=== PATIENT | female | born 1970 | race Caucasian/White ===

== ENCOUNTER 2021-06-28 16:36 | Emergency (ER) | payer OTHER ==
[2021-06-28 18:36] LABS: BASOPHIL 0.6 % (0-2); EOSINOPHIL 3.7 % (0-5); HCT 37.9 % (37.0-47.0); HGB 12.6 g/dl (12.5-16.0); LYMPHOCYTE 41.7 % (15-48); MCH 31.8 pg (25.0-31.0); MCHC 33.2 g/dL (32.0-36.0); MCV 95.7 fL (78.0-100.0); MONOCYTE 6.6 % (0-12); MPV 10.3 fL (6.0-9.5); NEUTROPHIL 47.1 % (41-80); NRBC 0; PLT 243 K/uL (150-400); RBC 3.96 M/uL (4.20-5.40); WBC 7.1 K/uL (4.0-10.5)
[2021-06-28 18:45] LABS: BILIRUBIN - TOTAL 0.3 mg/dL (0.2-1.0); BUN/CREAT RATIO (CALC) 16.7 RATIO; CREATININE 0.78 mg/dL (0.51-0.95); GLOBULIN (CALCULATION) 2.9 g/dL; TOTAL PROTEIN 6.9 g/dL (6.4-8.2)
[2021-06-28 18:55] LABS: LACTIC ACID 0.6 mmol/L (0.4-1.9)
[2021-06-28 20:04] LABS: BILIRUBIN NEGATIVE (NEGATIVE); BLOOD NEGATIVE Ery/uL (NEGATIVE); CLARITY CLEAR (CLEAR); COLOR YELLOW (YELLOW); GLUCOSE (U) NORMAL (NORMAL); LEUKOCYTES NEGATIVE Leu/uL (NEGATIVE); NITRITE NEGATIVE (NEGATIVE); PROTEIN NEGATIVE (NEGATIVE); SPECIFIC GRAVITY 1.015 (1.001-1.030)
[2021-06-28 20:11] LABS: URINARY WBC RARE
[2021-06-28 20:12] LABS: BACTERIA TRACE
[2021-06-28] MEDS ORDERED: ONDANSETRON ODT4 MG PO (22:01)
[2021-06-28] MEDS ORDERED: DICYCLOMINE HCL20 MG PO (22:01)
== END 2021-06-28 22:20 | disposition home or self-care (01) ==
LOC: FER 16:36
PROVIDERS: Physician Assistant
DX: R10.9 Unspecified abdominal pain (principal); R11.2 Nausea with vomiting, unspecified; F17.290 Nicotine dependence, other tobacco product, uncomplicated; Z28.310 Unvaccinated for COVID-19
CPT/HCPCS: 36415; 80053; 81001; 83605; 83690; 85025; J2060; J2405; J7040; Q9967